=== PATIENT | female | born 1970 | race Caucasian/White ===

== ENCOUNTER 2017-09-01 14:11 | Emergency (ER) | payer MEDICAID ==
[~2017-09-01] VITALS: Ht 165.1 cm; Wt 66.0 kg
[~2017-09-01 14:11] MED LIST: ATEN-175; ENALAPRIL; IBUPROFEN; SULF1TAB47
[2017-09-01] MEDS ORDERED: IBUPROFEN 600MG TABLET PO ONE (15:30)
[2017-09-01] MEDS ORDERED: CYCLOBENZAPRINE 10MG TABLET PO ONE (15:30)
[2017-09-01 17:05] VITALS: BP 160/103
== END 2017-09-01 17:52 | disposition home or self-care (01) ==
LOC: ER 16:23
DX: M79.672 Pain in left foot (principal); I10 Essential (primary) hypertension; F17.200 Nicotine dependence, unspecified, uncomplicated; Z88.0 Allergy status to penicillin
CPT/HCPCS: 73630; 99284; Z7610

== ENCOUNTER 2018-01-20 00:52 | Emergency (ER) | payer MEDICAID ==
[~2018-01-20] VITALS: Ht 165.1 cm; Wt 67.8 kg
[2018-01-20] MEDS ORDERED: ASPI-1158 MT (01:32)
[2018-01-20] MEDS ORDERED: LOSA100T14 MT (01:32)
[2018-01-20] MEDS ORDERED: AMLO10TA80 MT (01:33)
[2018-01-20] MEDS ORDERED: ONDANSETRON HCL 4MG/2ML INJ IV STA (01:40)
[2018-01-20 02:23] LABS: BASOPHILS % 0.6 % (0.0-2.0); EOSINOPHILS % 3.1 % (0.0-5.0); HEMATOCRIT. 44.9 % (36.0-48.0); HEMOGLOBIN. 15.9 g/dL (12.0-16.0); LYMPHOCYTES % 29.2 % (20.0-50.0); MEAN CORPUSCULAR HEMOGLOBIN 33.8 pg (28.0-32.0); MEAN CORPUSCULAR VOLUME 95.5 fL (81.0-99.0); MEAN PLATELET VOLUME 7.6 fl (7.4-10.4); MONOCYTES % 8.7 % (2.0-8.0); NEUTROPHILS % 58.4 % (40.0-76.0); PLATELET 322 x1000/uL (130-400); RED CELL DISTRIBUTION WIDTH 13.6 % (11.6-14.6)
[2018-01-20 02:25] LABS: CHLORIDE 105 mEq/L (98-107)
[2018-01-20 02:28] LABS: PROTHROMBIN TIME 9.6 sec (9.1-11.1)
[2018-01-20 03:00] LABS: CLARITY URINE CLEAR (CLEAR); COLOR URINE YELLOW (YELLOW); KETONES URINE NEGATIVE (NEGATIVE); LEUKOCYTE ESTERASE URINE 1+ (NEGATIVE); NITRITE URINE NEGATIVE (NEGATIVE); OCCULT BLOOD URINE 1+ (NEGATIVE); PROTEIN URINE TRACE (NEGATIVE); SPECIFIC GRAVITY URINE 1.011 (1.005-1.030); UROBILINOGEN URINE 0.2 E.U./dL (0.2-1.0)
[2018-01-20] MEDS ORDERED: KETOROLAC 15MG/ML VIAL IV ONE (03:45)
[2018-01-20 05:08] VITALS: BP 139/93
== END 2018-01-20 05:23 | disposition home or self-care (01) ==
LOC: ER 05:06
DX: N30.00 Acute cystitis without hematuria (principal); R51 Headache; I10 Essential (primary) hypertension; Z79.82 Long term (current) use of aspirin; Z79.899 Other long term (current) drug therapy; Z88.0 Allergy status to penicillin
CPT/HCPCS: 36415; 70450; 80053; 81003; 85025; 85610; 87086; 93005; 96374; 96375; 99285; J1885; J2405